=== PATIENT | male | born 1970 | race Hispanic/Latino ===

== ENCOUNTER 2025-08-15 11:10 | Emergency (ER) | payer OTHER, SELFPAY ==
[2025-08-15 11:12] VITALS: BP 172/96
[2025-08-15 12:17] LABS: Urine Character Clear (Clear)
[2025-08-15 12:32] LABS: Urine Red Blood Cell 0-2 /HPF (0-2); Urine White Cell 0-2 /HPF (0-5)
--- NOTE | 2025-08-15 12:56 | ED.GENMED ---
History of Present Illness
General
Chief Complaint: Back Pain
Time Seen by Provider: 08/15/25 11:36
History of Present Illness
History of Present Illness:
54-year-old male with history of hypertension presents to the emergency department for evaluation of bilateral low back pain for the past 2 to 3 days. He also reports dysuria and urinary urgency during this time. Pain seems to be worse with
movement. Denies fevers or chills. Denies any anterior abdominal pain, nausea, vomiting, or diarrhea. No hematuria. Denies any recent trauma or injuries
Past History
Past History
ED Past Medical History: None
ED Past Surgical History: None
Social History
Tobacco: Non-smoker
Alcohol: None
Drug: None
Living: with family
Review of Systems
Review of Systems
Allergies reviewed?: Yes
All Other Systems: ROS reviewed and negative except as documented in HPI and ROS
Phy Exam
Physical Exam
Physical Exam:
GEN: Well appearing, NAD, WDWN
HEENT: Oral mucosa moist, no scleral icterus
Cardiac: Regular rate
Lung: No respiratory distress, no tachypnea
Abdomen: Soft, grossly nontender
MSK: No gross deformity or injuries. No reproducible lumbar spine tenderness, no CVA tenderness to percussion
Skin: Good color, no pallor or jaundice, no rashes
Neuro: AO x3, moves all extremities freely
Psych: Calm, cooperative
Course
Orders/Labs/Results
Orders:
Orders
08/15/25 12:03
Urinalysis Reflex To Culture Urgent
Date Specimen was Collected: 08/15/25
Time Specimen was Collected: 12:02
Urine Microscopic Reflex Cult Urgent
08/15/25 12:56
CT Abd/pel Without Iv Or Oral Urgent
Comment:
Reason For Exam: BL flank pain, dysuria
Abnormal Lab Results
08/15/25
12:03
Urine Albumin (Reflex) 1+ A
(Neg - Trace)
Vital Signs
Initial and Last Documented VS:
Initial Vital Signs
Temp Pulse Resp BP Pulse Ox
98.4 F 66 18 172/96 98
08/15/25 11:12 08/15/25 11:12 08/15/25 11:12 08/15/25 11:12 08/15/25 11:12
Last Documented Vital Signs
Temp Pulse Resp BP Pulse Ox
98.4 F 66 18 172/96 98
08/15/25 11:12 08/15/25 11:12 08/15/25 11:12 08/15/25 11:12 08/15/25 12:56
MDM/Problems Addressed
MDM/Problems Addressed:
Urine unremarkable, negative retention on bladder scan. CT scan shows no evidence of etiology. Unclear why the patient has dysuria. Likely musculoskeletal etiology to pain
*Pulse Oximetry
SaO2: 98
Oxygen Mode of Delivery: Room air
Patient hypoxic: no
*Critical Care Note
Total Time (30-74mins, 75-104mins- exclusive of procedures): Not Applicable
ED Attending Note
-
Portions of this chart may have been created with voice recognition software.� Occasional wrong word or��sound alike� substitutions may have occurred due to the inherent limitations of voice recognition software.
Discharge Plan
Departure
Patient Disposition: Home (Routine Discharge)
Date of Disposition: 08/15/25
Time of Disposition: 14:46
Patient with high blood pressure during this ER visit?: No
Discharge Problem:
Back pain
Instructions: Low Back Pain (DC)
Prescriptions:
No Action
hydrocodone-acetaminophen 1 TABLET tablet
1 tab PO Q4HPRN PRN (Reason: severe pain) Qty: 20 0RF
Referrals:
UNKNOWN - PT DOES,NOT KNOW [Family Provider]
Interventions
Interventions:
*Risk Screen - Suicide Last Done: 08/15/25 12:47
*General Assessment Last Done: 08/15/25 12:47
*Neglect/Abuse Screening Last Done: 08/15/25 12:47
*ED- Fall Risk Assessment Last Done: 08/15/25 12:47
*Nursing Disposition Last Done: 08/15/25 15:00
ED-Musculoskeletal Assessment Last Done: 08/15/25 12:47
Discharge Date and Time
Discharge Date/Time: 08/15/25 15:00
Print Language: ZAMBIAN
== END 2025-08-15 15:00 | disposition home or self-care (01) ==
LOC: EMR 11:10
PROVIDERS: Physician Assistant; EMERGENCY PHYSICIAN Emergency Medicine
DX: M54.50 Low back pain, unspecified (principal); R30.0 Dysuria; I10 Essential (primary) hypertension
CPT/HCPCS: 99284; 74176; 81003; 81015